=== PATIENT | female | born 1985 | race Caucasian/White ===

== ENCOUNTER 2018-06-18 18:37 | Emergency (ER) | payer OTHER ==
[~2018-06-18] VITALS: Ht 152.4 cm; Wt 84.1 kg
[~2018-06-18 18:37] MED LIST: PRON INH
[2018-06-18 18:44] VITALS: BP 121/71
--- NOTE | 2018-06-18 20:55 | NUR ---
2054---PATIENT LEFT WITHOUT BEING SEEN BY DR. MILLER. NO FURTHER CARE PROVIDED FOR PATIENT. 2099--2ND CALL, NO ANSWER. 2104---3RD CALL, NO ANSWER.
== END 2018-06-18 20:53 | disposition left against medical advice (07) ==
LOC: MED 18:37
DX: K08.89 Other specified disorders of teeth and supporting structures (principal); Z53.21 Procedure and treatment not carried out due to patient leaving prior to being seen by health care provider

== ENCOUNTER 2019-01-07 08:52 | Emergency (ER) | payer OTHER ==
[~2019-01-07] VITALS: Ht 152.4 cm; Wt 77.6 kg
[2019-01-07 08:56] VITALS: BP 121/80
--- NOTE | 2019-01-07 09:05 | NUR ---
33 Y FEMALE BIB SELF C/O DIFFICULTY BREATHING AND NON-PRODUCTIVE COUGH X3 DAYS. PT TX WITH ALBUTEROL WITH NO RELIEF. PT REPORTS SOB AT THIS TIME. RR EVEN, NON-LABORED, BREATH SOUNDS CLEAR THROUGHOUT. PT OXYGEN AT 97% RA. PT DENEIS N/V OR FEVER. PT REPORTS 9/10 MIDSTERNAL CP WITH INSPIRATION DUE TO COUGH. TACHY AT 109. PT AA0X4. BED IS DOWN, LCOKED, BED RAIL X 1, ERMD TO SEE PT. MEDHX:ASTHMA RX:ALBUTEROL
--- NOTE | 2019-01-07 09:07 | NUR ---
dr holcomb at pt bedside
--- NOTE | 2019-01-07 09:24 | NUR ---
XRAY AT BEDSIDE
[2019-01-07] MEDS ORDERED: AMOXICILLIN 500 MG CAP PO ONE (09:30)
[2019-01-07 10:00] VITALS: BP 125/83
--- NOTE | 2019-01-07 10:00 | NUR ---
Patient discharged with v/s stable. Written and verbal after care instructions given and explained. Patient alert, oriented and verbalized understanding of instructions. Ambulatory with steady gait. All questions addressed prior to discharge. ID band removed. Patient advised to follow up with PMD. Rx of AMOXICILLIN, PROMETHAZINE HYDROCHLORIDE given. Patient educated on indication of medication including possible reaction and side effects. Opportunity to ask questions provided and answered.
== END 2019-01-07 09:05 | disposition home or self-care (01) ==
LOC: MED 08:52
DX: J18.9 Pneumonia, unspecified organism (principal); J45.909 Unspecified asthma, uncomplicated; Z79.899 Other long term (current) drug therapy; Z88.6 Allergy status to analgesic agent; Z91.018 Allergy to other foods
CPT/HCPCS: 71045; 99283; Q0092

== ENCOUNTER 2020-12-18 12:33 | Emergency (ER) | payer OTHER ==
[~2020-12-18] VITALS: Ht 152.4 cm; Wt 68.5 kg
[2020-12-18 12:40] VITALS: BP 125/76
--- NOTE | 2020-12-18 12:43 | NUR ---
PT AMBULATED TO BED 2.
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
--- NOTE | 2020-12-18 13:00 | NUR ---
Patient ambulated to the restroom with a steady gait.
--- NOTE | 2020-12-18 13:05 | NUR ---
Dr. Turcios at the bedside evaluating patient.
[2020-12-18] MEDS ORDERED: ONDANSETRON 4 MG/2 ML VIAL IVP ONE (13:15)
[2020-12-18] MEDS ORDERED: NACL 0.9% 1,000 ML IV ONE (13:15)
[2020-12-18] MEDS ORDERED: MORPHINE SULFATE 4 MG/ML SYR IVP ONE (13:15)
--- NOTE | 2020-12-18 13:23 | NUR ---
Patient taken to CT via wheelchair by multi care technician.
[2020-12-18] MEDS ORDERED: ACET-8386 PO (13:53)
[2020-12-18] MEDS ORDERED: ONDA8TAB87 PO (13:53)
[2020-12-18 14:04] VITALS: BP 125/76
--- NOTE | 2020-12-18 14:04 | NUR ---
Patient discharged with v/s stable. Written and verbal after care instructions given and explained. Patient alert, oriented and verbalized understanding of instructions. Ambulatory with steady gait. All questions addressed prior to discharge. ID band removed. Patient advised to follow up with PMD. Rx of hydrocodone/acetaminophen, ondansetron given. Patient educated on indication of medication including possible reaction and side effects. Opportunity to ask questions provided and answered.
--- NOTE | 2020-12-19 23:47 | NUR ---
LATE ENTRY- NORMAL SALINE 0.9% DISCONTINUED AT 1445
== END 2020-12-18 14:04 | disposition home or self-care (01) ==
LOC: MED 12:33
DX: R51.9 Headache, unspecified (principal); R50.9 Fever, unspecified; R11.2 Nausea with vomiting, unspecified; F12.90 Cannabis use, unspecified, uncomplicated; J45.909 Unspecified asthma, uncomplicated; Z79.899 Other long term (current) drug therapy; Z88.6 Allergy status to analgesic agent; Z91.018 Allergy to other foods
CPT/HCPCS: 70450; 81002; 81025; 96360; 99284; J7030

== ENCOUNTER 2021-07-08 13:05 | Emergency (ER) | payer OTHER ==
[~2021-07-08] VITALS: Ht 152.4 cm; Wt 77.1 kg
[~2021-07-08 13:05] MED LIST changes: +ACET-8386 PO; +ONDA8TAB87 PO
[2021-07-08 13:17] VITALS: BP 117/73
--- NOTE | 2021-07-08 14:18 | NUR ---
PT AMBULATED TO ER BED 8
[2021-07-08] MEDS ORDERED: CIPR500T4 PO (14:23)
--- NOTE | 2021-07-08 14:59 | NUR ---
Patient discharged with v/s stable. Written and verbal after care instructions given and explained. Patient alert, oriented and verbalized understanding of instructions. Ambulatory with steady gait. All questions addressed prior to discharge. ID band removed. Patient advised to follow up with PMD. Rx of CIPROFLOXACIN given. . Opportunity to ask questions provided and answered.
--- NOTE | 2021-07-08 15:00 | NUR ---
The patient's care was reviewed and supervised by Shyann Smith RN.
== END 2021-07-08 14:59 | disposition home or self-care (01) ==
LOC: MED 13:05
DX: S91.331A Puncture wound without foreign body, right foot, initial encounter (principal); J45.909 Unspecified asthma, uncomplicated; Z79.2 Long term (current) use of antibiotics; Z79.899 Other long term (current) drug therapy; Z79.51 Long term (current) use of inhaled steroids; Z79.891 Long term (current) use of opiate analgesic; Z88.6 Allergy status to analgesic agent; Z91.018 Allergy to other foods; W45.0XXA Nail entering through skin, initial encounter; Y92.89 Other specified places as the place of occurrence of the external cause; Y93.89 Activity, other specified; Y99.8 Other external cause status
CPT/HCPCS: 73630; 90471; 90715; 99283

== ENCOUNTER 2022-06-02 12:54 | Emergency (ER) | payer OTHER ==
[~2022-06-02] VITALS: Ht 152.4 cm; Wt 76.7 kg
[~2022-06-02 12:54] MED LIST changes: +CIPR500T4 PO
[2022-06-02 13:29] VITALS: BP 103/76
[2022-06-02] MEDS ORDERED: methocarbamoL 500 MG TAB PO STA (15:14)
[2022-06-02] MEDS ORDERED: ACETAMINOPHEN 325 MG TAB PO ONE (15:15)
--- NOTE | 2022-06-02 15:30 | NUR ---
PT AMBULATED TO ROOM 8
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
--- NOTE | 2022-06-02 16:04 | NUR ---
XRAY AT BEDSIDE
[2022-06-02] MEDS ORDERED: METH-1681 PO (17:23)
[2022-06-02] MEDS ORDERED: LID5T TP (17:23)
[2022-06-02 17:30] VITALS: BP 111/68
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
--- NOTE | 2022-06-02 17:35 | NUR ---
Chart checked and completed. The patient's care was reviewed and supervised by Makayla Castellon RN.
== END 2022-06-02 17:30 | disposition home or self-care (01) ==
LOC: MED 12:54
DX: S16.1XXA Strain of muscle, fascia and tendon at neck level, initial encounter (principal); S20.219A Contusion of unspecified front wall of thorax, initial encounter; J45.909 Unspecified asthma, uncomplicated; Z79.899 Other long term (current) drug therapy; Z88.6 Allergy status to analgesic agent; Z91.018 Allergy to other foods; V89.2XXA Person injured in unspecified motor-vehicle accident, traffic, initial encounter; Y93.89 Activity, other specified; Y92.89 Other specified places as the place of occurrence of the external cause; Y99.8 Other external cause status
CPT/HCPCS: 71045; 93005; 99285; Q0092

== ENCOUNTER 2023-02-03 20:54 | Emergency (ER) | payer OTHER ==
[~2023-02-03] VITALS: Ht 152.4 cm; Wt 77.1 kg
[~2023-02-03 20:54] MED LIST changes: -ACET-8386 PO; +ACET-8905 PO; +LID5T TP; +METH-1681 PO
[2023-02-03 21:00] VITALS: BP 126/84; PULSE 82; RESP 17; TEMP 97.6; O2SAT 97
--- NOTE | 2023-02-03 21:00 | NUR ---
to bed ambulatory
[2023-02-03 21:40] LABS: APPEARANCE,URINE CLOUDY (CLEAR); BILIRUBIN,URINE NEGATIVE (NEGATIVE); BLOOD, URINE TRACE-I (NEGATIVE); COLOR,URINE YELLOW (YELLOW); LEUKOCYTE ESTERASE ,URINE NEGATIVE (NEGATIVE); NITRITE, URINE NEGATIVE (NEGATIVE); UGLUCOSE NEGATIVE (NEGATIVE)
--- NOTE | 2023-02-03 22:18 | NUR ---
Dr. Winn examining patient.
--- NOTE | 2023-02-03 22:19 | NUR ---
DR. FERNANDES AT EVALUATING. IV ACCESS STARTED. TO ORDER PAIN MEDICATION AND CT SCAN.
[2023-02-03] MEDS ORDERED: ACETAMINOPHEN EXTRA STRENGTH 500 MG TAB PO ONE (22:35)
--- NOTE | 2023-02-03 22:44 | NUR ---
Lab at BS drawing pt. Visitor at BS with pt.
[2023-02-03 23:02] LABS: BASOPHILS # (AUTO) 0.1 K/uL (0.00-0.22); BASOPHILS % (AUTO) 0.7 % (0.0-2.0); EOSINOPHILS # (AUTO) 0.3 K/uL (0-0.4); EOSINOPHILS % (AUTO) 3.1 % (0.0-4.0); HEMATOCRIT 37.8 % (36-48); HEMOGLOBIN 12.9 g/dL (12.0-16.0); LYMPHOCYTES # (AUTO) 2.6 K/uL (2.5-16.5); LYMPHOCYTES % (AUTO) 24.6 % (20.5-51.1); MEAN CORPUSCULAR HEMOGLOBIN 29 pg (27-31); MEAN CORPUSCULAR HGB CONC 34 g/dL (33-37); MEAN CORPUSCULAR VOLUME 83.6 fL (80-94); MONOCYTES # (AUTO) 0.9 K/uL (0.8-1.0); NEUTROPHILS # (AUTO) 6.8 K/uL (1.8-7.7); NEUTROPHILS % (AUTO) 63.6 % (42.2-75.2); PLATELET COUNT (AUTO) 269 K/uL (140-450); RED BLOOD CELL COUNT(AUTO) 4.52 MIL/uL (4.20-5.40); RED CELL DISTRIBUTION WIDTH 13.4 % (11.6-13.7); WHITE BLOOD COUNT (AUTO) 10.7 K/uL (4.8-10.8)
--- NOTE | 2023-02-03 23:06 | NUR ---
ATTEMPTED TO MEDICATE PT ORDERED. PT STATED, "I WANT TO WAIT ON THAT". WILL MEDICATE PT WHEN PT IS READY TO TAKE MEDICATION.
[2023-02-03 23:17] LABS: ALBUMIN 3.3 g/dL (3.4-5.0); ANION GAP 12.7 (8-16); CARBON DIOXIDE 27.2 mmol/L (21-32); CREATININE 0.9 mg/dL (0.6-1.3); POTASSIUM 3.9 mmol/L (3.5-5.1); TOTAL BILIRUBIN 0.2 mg/dL (0.0-1.0)
--- NOTE | 2023-02-04 01:42 | NUR ---
INFORMED THE PT THAT SHE HAS COLITIS AND THAT HE WOULD BE PRESCRIBING AN ANTIBIOTIC.
[2023-02-04] MEDS ORDERED: AMOX1TAB8 PO (01:54)
[2023-02-04] MEDS ORDERED: ONDA-188 PO (01:54)
[2023-02-04] MEDS ORDERED: ACET-10509 PO (01:54)
[2023-02-04] MEDS ORDERED: MAG355OR2 PO (01:55)
[2023-02-04 02:04] VITALS: BP 112/72; PULSE 76; RESP 18; TEMP 98.1; O2SAT 97
--- NOTE | 2023-02-04 02:04 | NUR ---
Patient discharged with v/s stable. Written and verbal after care instructions given and explained. Patient alert, oriented and verbalized understanding of instructions. Ambulatory with steady gait. All questions addressed prior to discharge. ID band removed. Patient advised to follow up with PMD. Rx of TYLENOL, AMOX-CLAV, MAALOX, AND ZOFRAN given. Patient educated on indication of medication including possible reaction and side effects. Opportunity to ask questions provided and answered. Pt instructed to return to the ER if condition worsens or to call 911 in the case of an emergency.
== END 2023-02-04 02:04 | disposition home or self-care (01) ==
LOC: MED 20:54
DX: K52.9 Noninfective gastroenteritis and colitis, unspecified (principal); N83.202 Unspecified ovarian cyst, left side; J45.909 Unspecified asthma, uncomplicated; Z91.018 Allergy to other foods; Z88.5 Allergy status to narcotic agent; Z79.899 Other long term (current) drug therapy
CPT/HCPCS: 36415; 74177; 80053; 81003; 81025; 83605; 83690; 85025; 99285; Q9967